=== PATIENT | male | born 1975 | race Caucasian/White ===

== ENCOUNTER 2021-01-24 14:22 | Emergency (ER) | payer SELFPAY ==
[2021-01-24] MEDS ORDERED: IPRATROPIUM BROM 0.5MG/2.5ML ONE ×2 (15:19→18:36)
[2021-01-24] MEDS ORDERED: METHYLPREDNISOLONE 125 MG INJ ONE (15:19)
[2021-01-24] MEDS ORDERED: ALBUTEROL 2.5 MG/3 ML NEB SOL ONE ×2 (15:19→18:36)
[2021-01-24] MEDS ORDERED: NA CHLORIDE 0.9% 1,000 ML ONE (15:45)
[2021-01-24 16:01] LABS: Absolute Lymphocytes (CBC) 1.8 K/uL (0.7-4.9); Basophils % 0.7 % (0-1.3); Hematocrit 52.1 % (39.6-49.0); MPV 8.7 fL (7.6-11.3); RBC Red Blood Cell Count 6.05 M/uL (4.33-5.43)
[2021-01-24 16:06] LABS: Potassium 3.5 mmol/L (3.5-5.1)
--- NOTE | 2021-01-24 16:28 | RAD REPORT ---
EXAM DESCRIPTION: RAD - Chest Single View - 01/24/2021 4:14 pm CLINICAL HISTORY: Cough;Dyspnea COMPARISON: None TECHNIQUE: AP portable chest image was obtained 01/24/2021 4:14 pm . FINDINGS: Lungs are clear. Heart and vasculature are normal. No measurable pleural effusion and no p neumothorax. No acute bony abnormality seen. No acute aortic findings suspected. IMPRESSION: No acute cardiopulmonary process.
--- NOTE | 2021-01-24 18:26 | ER ---
Nurse's Notes [facility] [place] Name: Percy Manning Age: 45 yrs Sex: Male : 1975 Arrival Date: 01/24/2021 Time: 14:31 Bed 19 Private MD: Diagnosis: Acute bronchitis, unspecified;Mild persistent asthma Presentation: 01/24 14:40 Chief complaint: Patient states: fever, congestion, vomiting and diarrhea x2 weeks. 5 Coronavirus screen: Vaccine status: Patient reports being unvaccinated. Client denies travel out of the [place] in the last 14 days. Ebola Screen: Patient negative for fever greater than or equal to 101.5 degrees Fahrenheit, and additional compatible Ebola Virus Disease symptoms Patient denies exposure to infectious person. Patient denies travel to an Ebola-affected area in the 21 days before illness onset. No symptoms or risks identified at this time. Initial Sepsis Screen: Does the patient meet any 2 criteria? HR > 90 bpm. Does the patient have a suspected source of infection?. Risk Assessment: Do you want to hurt yourself or someone else? Patient reports no desire to harm self or others. Onset of symptoms was January 2021. 14:40 Method Of Arrival: Ambulatory [facility] 14:40 Acuity: AARON 3 jh5 Triage Assessment: 14:44 General: Appears uncomfortable, well groomed, Behavior is calm, cooperative, jh5 appropriate for age. Pain: Complains of pain in back and chest. 14:45 Neuro: Level of Consciousness is awake, alert, obeys commands, Oriented to person, jh5 place, time, situation, Speech is normal. Cardiovascular: Reports chest pain, chest tightness; pt vomiting x3 days with diarrhea. Respiratory: Airway is patent Trachea midline. Historical: - Allergies: 17:03 No Known Allergies; sl2 - Immunization history:: Adult Immunizations up to date, Client reports having NOT received the Covid vaccine. - Social history:: Smoking status: unknown. Screenin:03 Abuse screen: Denies threats or abuse. Nutritional screening: No deficits noted. sl2 Tuberculosis screening: No symptoms or risk factors identified. Fall Risk None identified. No fall in past 12 months (0 pts). No secondary diagnosis (0 pts). No IV (0 pts). Ambulatory Aid- None/Bed Rest/Nurse Assist (0 pts). Gait- Normal/Bed Rest/Wheelchair (0 pts) Mental Status- Oriented to own ability (0 pts). Total Cronin Fall Scale indicates No Risk (0-24 pts). Assessment: 14:59 General: Appears in no apparent distress. uncomfortable, well groomed, well developed, sl2 Behavior is calm, cooperative, appropriate for age, Reports shortness of breath x 3 days. 14:59 Pain: Denies pain. Neuro: No deficits noted. Level of Consciousness is awake, alert, sl2 confused, Oriented to person, place, time, situation, Appropriate for age Interactive Video Technician are equal bilaterally Moves all extremities. Full function Gait is steady, Speech is normal, Facial symmetry appears normal. Cardiovascular: No deficits noted. Rhythm is sinus tachycardia. Respiratory: Reports shortness of breath Airway is patent Trachea midline Respiratory effort is even, unlabored, Respiratory pattern is regular, symmetrical, Breath sounds with wheezes bilaterally. GI: No deficits noted. No signs and/or symptoms were reported involving the gastrointestinal system. : No deficits noted. No signs and/or symptoms were reported regarding the genitourinary system. EENT: No deficits noted. No signs and/or symptoms were reported regarding the EENT system. Derm: No deficits noted. No signs and/or symptoms reported regarding the dermatologic system. Musculoskeletal: No deficits noted. No signs and/or symptoms reported regarding the musculoskeletal system. 16:59 Reassessment: Patient verbalized improved breathing post medication administration - sl2 vital signs stable - will continue to re-assess and monitor. 19:30 Reassessment: Patient appears in no apparent distress at this time. General: Appears in cc4 no apparent distress. Behavior is calm, cooperative, RX's \T\ discharge instructions given with v/u.. Cardiovascular: No deficits noted. Respiratory: Airway is patent Respiratory effort is even, unlabored, Respiratory pattern is regular, symmetrical. Vital Signs: 14:40 BP 169 / 151; Pulse 132; Resp 16; Temp 98.8; Pulse Ox 97% ; Weight 115.67 kg; Height 6 jh5 ft. (182.88 cm); 15:30 BP 126 / 87; Pulse 120; Resp 18; Pulse Ox 99% on R/A; sl2 16:00 BP 126 / 97; Pulse 121; Resp 18; Temp 98.8; Pulse Ox 96% on R/A; sl2 16:45 BP 102 / 66; Pulse 111; Resp 18; Pulse Ox 95% on R/A; sl2 17:30 BP 132 / 82; Pulse 102; Resp 20; Pulse Ox 97% on R/A; sl2 18:36 BP 112 / 76; Pulse 104; Resp 22; Temp 98.6; Pulse Ox 100% on NC; sl2 19:30 BP 117 / 50; Pulse 101; Resp 20; Temp 97.6; Pulse Ox 96% ; cc4 14:40 Body Mass Index 34.58 (115.67 kg, 182.88 cm) [facility] ED Course: 14:31 Patient arrived in ED. as 14:44 Triage completed. [facility] 14:46 Jesus Guzmán PA is PHCP. [facility] 14:46 William Newman MD is Attending Physician. [facility] 15:18 Lashonda Valdez, REGINO is Primary Nurse. 2 15:29 Patient has correct armband on for positive identification. Bed in low position. Call 5 light in reach. Side rails up X 1. phlebotomy specialist on. Pulse ox on. NIBP on. 16:14 XRAY Chest (1 view) In Process Unspecified. EDMS 19:30 Arm band placed on. cc4 19:30 No provider procedures requiring assistance completed. cc4 19:30 IV discontinued, intact, bleeding controlled, No redness/swelling at site. Pressure cc4 dressing applied. Administered Medications: 15:22 Drug: Albuterol - atroVENT (ipratropium) (3:1) (2.5 mg - 0.5 mg) 3 ml Route: Nebulizer; sl2 16:57 Follow up: Response: No adverse reaction; Marked relief of symptoms sl2 18:35 Follow up: Response: No adverse reaction sl2 19:30 Follow up: Response: No adverse reaction; Wheezing diminished cc4 15:26 Drug: SOLU-Medrol (methylPrednisoLONE) 125 mg Route: IVP; Site: left forearm; sl2 16:57 Follow up: Response: No adverse reaction; Marked relief of symptoms sl2 18:35 Follow up: Response: No adverse reaction sl2 19:30 Follow up: Response: No adverse reaction; Wheezing diminished cc4 15:30 Drug: NS 0.9% 1000 ml Route: IV; Rate: 1000 ml; Site: left forearm; sl2 16:57 Follow up: Response: No adverse reaction sl2 18:34 Follow up: Response: No adverse reaction; IV Status: Completed infusion; IV Intake: sl2 1000ml 19:30 Follow up: IV Status: Completed infusion; IV Intake: 1000ml cc4 18:37 Drug: Albuterol - atroVENT (ipratropium) (3:1) (2.5 mg - 0.5 mg) 3 ml Route: Nebulizer; sl2 19:30 Follow up: Response: No adverse reaction; Wheezing diminished cc4 Intake: 18:34 IV: 1000ml; Total: 1000ml. sl2 19:30 IV: 1000ml; Total: 2000ml. cc4 Outcome: 18:26 Discharge ordered by . jr8 19:30 Discharged to home ambulatory. cc4 19:30 Condition: improved 19:30 Discharge instructions given to family, Instructed on discharge instructions, follow up and referral plans. medication usage, Demonstrated understanding of instructions, follow-up care, medications. 19:56 Patient left the ED. em Signatures: Dispatcher [employer] Ángel Haro, RN RN em Liza Menon Josh, PA PA jrJosee Ward Christie, RN RN cc4 Lashonda Valdez RN RN 2 Sania Mullins RN RN 5
--- NOTE | 2021-01-24 18:27 | EDPHYS ---
Physician Documentation [facility] Name: Percy Manning Age: 45 yrs Sex: Male : 1975 Arrival Date: 01/24/2021 Time: 14:31 Bed 19 Private MD: ED Physician William Newman HPI: 01/24 16:36 This 45 yrs old Male presents to ER via Ambulatory with complaints of jr8 Congestion, Vomiting/Diarrhea. 16:36 This is a 45-year-old male patient that presented to the emergency room with a several jr8 day history of vomiting and diarrhea along with cough and congestion. Patient stated that most of his symptoms are resolved but continues to have cough and shortness of breath. Patient stated that he had had fevers along with body aches and chills as well.. Severity of symptoms: At their worst the symptoms were moderate in the emergency department the symptoms are unchanged. The patient has not experienced similar symptoms in the past. The patient has not recently seen a physician. Historical: - Allergies: 17:03 No Known Allergies; sl2 - Immunization history:: Adult Immunizations up to date, Client reports having NOT received the Covid vaccine. - Social history:: Smoking status: unknown. ROS: 16:36 Eyes: Negative for injury, pain, redness, and discharge, ENT: Negative for injury, jr8 pain, and discharge, Neck: Negative for injury, pain, and swelling, Back: Negative for injury and pain, MS/Extremity: Negative for injury and deformity, Skin: Negative for injury, rash, and discoloration, Neuro: Negative for headache, weakness, numbness, tingling, and seizure. 16:36 Constitutional: Positive for body aches, fever. 16:36 Respiratory: Positive for cough, shortness of breath, wheezing. 16:36 Abdomen/GI: Positive for nausea, vomiting, and diarrhea, Negative for abdominal pain. Exam: 16:36 Constitutional: This is a well developed, well nourished patient who is awake, alert, jr8 and in no acute distress. ENT: Nares patent. No nasal discharge, no septal abnormalities noted. Tympanic membranes are normal and external auditory canals are clear. Oropharynx with no redness, swelling, or masses, exudates, or evidence of obstruction, uvula midline. Mucous membranes moist. Neck: Trachea midline, no thyromegaly or masses palpated, and no cervical lymphadenopathy. Supple, full range of motion without nuchal rigidity, or vertebral point tenderness. No Meningismus. Back: No spinal tenderness. No costovertebral tenderness. Full range of motion. Skin: Warm, dry with normal turgor. Normal color with no rashes, no lesions, and no evidence of cellulitis. MS/ Extremity: Pulses equal, no cyanosis. Neurovascular intact. Full, normal range of motion. Neuro: Awake and alert, GCS 15, oriented to person, place, time, and situation. Cranial nerves II-XII grossly intact. Motor strength 5/5 in all extremities. Sensory grossly intact. 16:36 Abdomen/GI: Soft, non-tender, with normal bowel sounds. No distension or tympany. No guarding or rebound. No evidence of tenderness throughout. 16:36 Cardiovascular: Rate: tachycardic, Rhythm: regular, Pulses: Pulses are 2+ in right radial artery and left radial artery. Heart sounds: normal, normal S1and S2, no S3 or S4, no murmur, no rub, no gallop, Edema: is not appreciated. 16:36 Respiratory: the patient does not display signs of respiratory distress, Respirations: normal, Breath sounds: wheezing: expiratory that is mild, is heard diffusely. Vital Signs: 14:40 BP 169 / 151; Pulse 132; Resp 16; Temp 98.8; Pulse Ox 97% ; Weight 115.67 kg; Height 6 jh5 ft. (182.88 cm); 15:30 BP 126 / 87; Pulse 120; Resp 18; Pulse Ox 99% on R/A; sl2 16:00 BP 126 / 97; Pulse 121; Resp 18; Temp 98.8; Pulse Ox 96% on R/A; sl2 16:45 BP 102 / 66; Pulse 111; Resp 18; Pulse Ox 95% on R/A; sl2 17:30 BP 132 / 82; Pulse 102; Resp 20; Pulse Ox 97% on R/A; sl2 18:36 BP 112 / 76; Pulse 104; Resp 22; Temp 98.6; Pulse Ox 100% on NC; sl2 19:30 BP 117 / 50; Pulse 101; Resp 20; Temp 97.6; Pulse Ox 96% ; cc4 14:40 Body Mass Index 34.58 (115.67 kg, 182.88 cm) [facility] MDM: 14:46 Patient medically screened. jr8 16:36 Data reviewed: vital signs, nurses notes, lab test result(s), radiologic studies, plain jr8 films. Data interpreted: Pulse oximetry: on room air is 96 %. Interpretation: normal. Counseling: I had a detailed discussion with the patient and/or guardian regarding: the historical points, exam findings, and any diagnostic results supporting the discharge/admit diagnosis, lab results, radiology results. 17:55 ED course: Patient overall feeling much better. No acute respiratory distress at this jr8 time. No signs of pneumonia or Covid. Will discharge patient home to follow-up PCP. We will put him on albuterol treatments with nebulizer at home along with steroids. Close return precautions given to patient. Patient good with this at this time and will return if needed.. 01/24 15:04 Order name: CBC with Diff; Complete Time: 16:24 jr8 01/24 15:04 Order name: Basic Metabolic Panel; Complete Time: 16:24 jr8 01/24 15:04 Order name: SARS-COV-2 RT PCR (Document "Date of Onset" if Symptomatic); Complete Time: jr8 17:45 01/24 15:04 Order name: XRAY Chest (1 view); Complete Time: 16:35 jr8 01/24 15:04 Order name: IV; Complete Time: 15:49 jr8 Administered Medications: 15:22 Drug: Albuterol - atroVENT (ipratropium) (3:1) (2.5 mg - 0.5 mg) 3 ml Route: Nebulizer; sl2 16:57 Follow up: Response: No adverse reaction; Marked relief of symptoms sl2 18:35 Follow up: Response: No adverse reaction sl2 19:30 Follow up: Response: No adverse reaction; Wheezing diminished cc4 15:26 Drug: SOLU-Medrol (methylPrednisoLONE) 125 mg Route: IVP; Site: left forearm; sl2 16:57 Follow up: Response: No adverse reaction; Marked relief of symptoms sl2 18:35 Follow up: Response: No adverse reaction sl2 19:30 Follow up: Response: No adverse reaction; Wheezing diminished cc4 15:30 Drug: NS 0.9% 1000 ml Route: IV; Rate: 1000 ml; Site: left forearm; sl2 16:57 Follow up: Response: No adverse reaction sl2 18:34 Follow up: Response: No adverse reaction; IV Status: Completed infusion; IV Intake: sl2 1000ml 19:30 Follow up: IV Status: Completed infusion; IV Intake: 1000ml cc4 18:37 Drug: Albuterol - atroVENT (ipratropium) (3:1) (2.5 mg - 0.5 mg) 3 ml Route: Nebulizer; sl2 19:30 Follow up: Response: No adverse reaction; Wheezing diminished cc4 Disposition: 01/25 07:01 Co-signature as Attending Physician, William Newman MD I agree with the assessment and rn plan of care. Attestation: The patient's history, exam findings, diagnostics, and a summary of any interventions or procedures was reviewed in detail with Jesus COX. Disposition Summary: 01/24/21 18:26 Discharge Ordered Location: Home jr8 Problem: new jr8 Symptoms: have improved jr8 Condition: Stable jr8 Diagnosis - Acute bronchitis, unspecified jr8 - Mild persistent asthma jr8 Followup: jr8 - With: Private Physician - When: 2 - 3 days - Reason: Recheck today's complaints, Continuance of care, Re-evaluation by your physician Discharge Instructions: - Discharge Summary Sheet jr8 - Acute Bronchitis, Adult jr8 - Viral Respiratory Infection jr8 Forms: - Medication Reconciliation Form jr8 - Thank You Letter jr8 - Antibiotic Education jr8 - Prescription Opioid Use jr8 - Work release form cs9 Prescriptions: - Albuterol Sulfate 2.5 mg /3 mL (0.083 %) Inhalation Solution for Nebulization - inhale 1 unit by NEBULIZATION route every 8 hours As needed; 1 box; Refills: 0, jr8 Product Selection Permitted - Medrol (Marc) 4 mg Oral Tablets, Dose Pack - take 1 tablet by ORAL route as directed - follow package instructions; 1 jr8 packet; Refills: 0, Product Selection Permitted - Zofran 4 mg Oral Tablet - take 1 tablet by ORAL route every 12 hours As needed; 20 tablet; Refills: 0, jr8 Product Selection Permitted Signatures: Dispatcher [employer] William Boyd MD MD rn Roszak, Josh, PA PA jr8 Lashonda Valdez RN RN 2 Mau, Crystal RN cc4
[2021-01-24 20:41] VITALS: BP 112/76; TEMP 98.6; O2SAT 100
== END 2021-01-24 19:56 | disposition home or self-care (01) ==
LOC: ER 14:22
DX: J20.9 Acute bronchitis, unspecified (principal); J45.30 Mild persistent asthma, uncomplicated; Z20.822 Contact with and (suspected) exposure to COVID-19
CPT/HCPCS: 36415; 71045; 80048; 85025; 94640; 96361; 96374; 99285; J2930; J7030; U0003